=== PATIENT | male | born 1980 | race Caucasian/White ===

== ENCOUNTER 2018-04-11 15:06 | Inpatient (IN) | payer MEDICAID, MEDICARE ==
[2018-04-11 17:07] LABS: HEMATOCRIT 44.1 % (42.0-52.0); MEAN CORPUSCULAR VOLUME 91.1 fl (80.0-96.0); PLATELET COUNT, AUTOMATED 253 10^3/uL (150-450); RED BLOOD COUNT 4.84 10^6/uL (4.30-6.10); RED CELL DISTRIBUTION WIDTH 13.5 % (11.5-14.5); WHITE BLOOD COUNT 8.8 10^3/uL (4.0-10.0)
[2018-04-11 17:19] LABS: ALBUMIN 3.7 GM/DL (3.2-5.2); ALBUMIN/GLOBULIN RATIO 1.16 (1.00-1.93); ALKALINE PHOSPHATASE 68 U/L (45-117); ALT/SGPT 20 U/L (12-78); ANION GAP 9 MEQ/L (8-16); AST/SGOT 13 U/L (7-37); BILIRUBIN,DIRECT < 0.1 MG/DL (0.0-0.2); BILIRUBIN,TOTAL 0.4 MG/DL (0.2-1.0); BLOOD UREA NITROGEN 9 MG/DL (7-18); CALCIUM LEVEL 8.7 MG/DL (8.5-10.1); CARBON DIOXIDE LEVEL 26 MEQ/L (21-32); CHLORIDE LEVEL 110 MEQ/L (98-107); CREATININE FOR GFR 0.83 MG/DL (0.70-1.30); GLOMERULAR FILTRATION RATE > 60.0 (>60); GLUCOSE, FASTING 86 MG/DL (70-100); POTASSIUM SERUM 3.8 MEQ/L (3.5-5.1); SALICYLATE LEVEL 7.7 MG/DL (5.0-30.0); SODIUM LEVEL 145 MEQ/L (136-145); TOTAL PROTEIN 6.9 GM/DL (6.4-8.2)
[2018-04-11 17:25] LABS: ACETAMINOPHEN LEVEL < 2.0 UG/ML (10.0-30.0); ETHYL ALCOHOL (ETHANOL) < 0.003 % (0.000-0.010)
[2018-04-11 17:37] LABS: AMPHETAMINES LEVEL URINE POSITIVE (NEGATIVE); BARBITURATES URINE NEGATIVE (NEGATIVE); BENZODIAZEPINES URINE NEGATIVE (NEGATIVE); CANNABINOIDS URINE POSITIVE (NEGATIVE); COCAINE METABOLITE URINE NEGATIVE (NEGATIVE); METHADONE URINE NEGATIVE (NEGATIVE); OPIATES URINE NEGATIVE (NEGATIVE); PHENCYCLIDINE URINE NEGATIVE (NEGATIVE)
[2018-04-11] MEDS ORDERED: MOM 30ML SUSPENSION UDC PO ×2 (18:45)
[2018-04-11] MEDS: traZODone 50 MG TAB PO ×2 (22:00)
[2018-04-12] MEDS: NICOTINE 21MG/24HR 1 EA TRANSDERMAL TD ×2 (08:10)
[2018-04-12] MEDS: LORazepam 2 MG TAB PO ×2 (10:25)
[2018-04-12] MEDS: BENZTROPINE 2 MG TAB PO ×4 (10:25→21:39)
[2018-04-12] MEDS: ZIPRASIDONE 20MG CAPSULE (GEODON) PO ×2 (10:26)
[2018-04-12] MEDS: ZIPRASIDONE 80 MG CAP (GEODON) PO ×2 (18:50)
[2018-04-12] MEDS: traZODone 50 MG TAB PO ×2 (21:39)
[2018-04-12] MEDS: PRAZOSIN 1 MG CAP PO ×2 (21:39)
[2018-04-13] MEDS: NICOTINE 21MG/24HR 1 EA TRANSDERMAL TD ×2 (08:15)
[2018-04-13] MEDS: BENZTROPINE 2 MG TAB PO ×4 (12:01→22:12)
[2018-04-13] MEDS: LORazepam 2 MG TAB PO ×2 (12:01)
[2018-04-13] MEDS: HALOPERIDOL 5 MG TAB PO ×2 (12:06)
[2018-04-13] MEDS: ZIPRASIDONE 80 MG CAP (GEODON) PO ×2 (17:39)
[2018-04-13] MEDS: PRAZOSIN 1 MG CAP PO ×2 (22:11)
[2018-04-14] MEDS: ACETAMINOPHEN TAB 650MG DOSE (2X325MG) PO ×2 (05:08)
[2018-04-14] MEDS: NICOTINE 21MG/24HR 1 EA TRANSDERMAL TD ×2 (08:16)
[2018-04-14] MEDS: BENZTROPINE 2 MG TAB PO ×4 (08:16→21:00)
[2018-04-14] MEDS: HALOPERIDOL 5 MG TAB PO ×2 (12:17)
[2018-04-14] MEDS: LORazepam 2 MG TAB PO ×2 (15:21)
[2018-04-14] MEDS: ZIPRASIDONE 80 MG CAP (GEODON) PO ×2 (18:12)
[2018-04-14] MEDS: ZIPRASIDONE 20MG CAPSULE (GEODON) PO ×2 (18:12)
[2018-04-14] MEDS: PRAZOSIN 1 MG CAP PO ×2 (21:00)
[2018-04-15] MEDS: HALOPERIDOL 5 MG TAB PO ×4 (07:02→18:05)
[2018-04-15] MEDS: NICOTINE 21MG/24HR 1 EA TRANSDERMAL TD ×2 (07:51)
[2018-04-15] MEDS: BENZTROPINE 2 MG TAB PO ×4 (07:51→20:18)
[2018-04-15] MEDS: ZIPRASIDONE 80 MG CAP (GEODON) PO ×2 (17:53)
[2018-04-15] MEDS: ZIPRASIDONE 20MG CAPSULE (GEODON) PO ×2 (17:53)
[2018-04-15] MEDS: LORazepam 1 MG TAB PO ×2 (20:18)
[2018-04-15] MEDS: PRAZOSIN 1 MG CAP PO ×2 (20:18)
[2018-04-16] MEDS: HALOPERIDOL 5 MG TAB PO ×2 (06:10)
[2018-04-16] MEDS: BENZTROPINE 2 MG TAB PO ×4 (08:25→21:29)
[2018-04-16] MEDS: NICOTINE 21MG/24HR 1 EA TRANSDERMAL TD ×2 (08:26)
[2018-04-16] MEDS: LORazepam 1 MG TAB PO ×2 (08:26)
[2018-04-16] MEDS: ZIPRASIDONE 20MG CAPSULE (GEODON) PO ×2 (17:41)
[2018-04-16] MEDS: ZIPRASIDONE 80 MG CAP (GEODON) PO ×2 (17:41)
[2018-04-16] MEDS: PRAZOSIN 1 MG CAP PO ×2 (21:29)
[2018-04-17] MEDS: BENZTROPINE 2 MG TAB PO ×4 (08:09→08:45)
[2018-04-17] MEDS: NICOTINE 21MG/24HR 1 EA TRANSDERMAL TD ×2 (08:10)
[2018-04-17] MEDS: ZIPRASIDONE 20MG CAPSULE (GEODON) PO ×4 (08:44→17:55)
[2018-04-17] MEDS: MULTIVITAMINS/MINERALS THERAP 1 TAB PO ×2 (08:44)
[2018-04-17] MEDS: LORazepam 1 MG TAB PO ×6 (10:10→21:00)
[2018-04-17] MEDS: ZIPRASIDONE 80 MG CAP (GEODON) PO ×2 (17:55)
[2018-04-17] MEDS: HALOPERIDOL 5 MG TAB PO ×4 (18:19→21:00)
[2018-04-17] MEDS: PRAZOSIN 1 MG CAP PO ×2 (20:14)
[2018-04-17] MEDS: diphenhydrAMINE 50 MG CAP PO ×2 (21:00)
[2018-04-18] MEDS: NICOTINE 21MG/24HR 1 EA TRANSDERMAL TD ×4 (09:00→19:16)
[2018-04-18] MEDS: ZIPRASIDONE 20MG CAPSULE (GEODON) PO ×4 (09:01→17:57)
[2018-04-18] MEDS: BENZTROPINE 2 MG TAB PO ×2 (09:01)
[2018-04-18] MEDS ORDERED: PILL CRUSHER/CUTTER 1 EACH XX ×2 (10:30)
[2018-04-18] MEDS: LORazepam 1 MG TAB PO ×2 (13:19)
[2018-04-18] MEDS: HALOPERIDOL 5 MG TAB PO ×2 (13:19)
[2018-04-18] MEDS: ZIPRASIDONE 80 MG CAP (GEODON) PO ×2 (17:58)
[2018-04-18] MEDS: PRAZOSIN 1 MG CAP PO ×2 (21:00)
[2018-04-19] MEDS: BENZTROPINE 2 MG TAB PO ×2 (10:21)
[2018-04-19] MEDS: NICOTINE 21MG/24HR 1 EA TRANSDERMAL TD ×2 (10:21)
[2018-04-19] MEDS: ZIPRASIDONE 20MG CAPSULE (GEODON) PO ×4 (10:22→19:52)
[2018-04-19] MEDS: HALOPERIDOL DECANOATE 100 MG/ML VIAL (J1631) IM ×2 (10:24)
[2018-04-19] MEDS: LORazepam 1 MG TAB PO ×2 (15:33)
[2018-04-19] MEDS: HALOPERIDOL 5 MG TAB PO ×2 (17:19)
[2018-04-19] MEDS: ZIPRASIDONE 80 MG CAP (GEODON) PO ×2 (19:50)
[2018-04-19] MEDS: PRAZOSIN 1 MG CAP PO ×2 (19:56)
[2018-04-20] MEDS: BENZTROPINE 2 MG TAB PO ×2 (07:43)
[2018-04-20] MEDS: ZIPRASIDONE 20MG CAPSULE (GEODON) PO ×4 (07:43→18:10)
[2018-04-20] MEDS: NICOTINE 21MG/24HR 1 EA TRANSDERMAL TD ×2 (07:44)
[2018-04-20] MEDS: LORazepam 1 MG TAB PO ×2 (11:01)
[2018-04-20] MEDS: HALOPERIDOL 5 MG TAB PO ×2 (11:01)
[2018-04-20] MEDS: QUEtiapine FUMARATE 100 MG TAB PO ×2 (14:36)
[2018-04-20] MEDS: diphenhydrAMINE 50 MG CAP PO ×4 (15:30→21:00)
[2018-04-20] MEDS: ZIPRASIDONE 80 MG CAP (GEODON) PO ×2 (18:10)
[2018-04-21] MEDS: BENZTROPINE 2 MG TAB PO ×2 (08:19)
[2018-04-21] MEDS: ZIPRASIDONE 20MG CAPSULE (GEODON) PO ×4 (08:19→17:31)
[2018-04-21] MEDS: HALOPERIDOL 5 MG TAB PO ×2 (08:19)
[2018-04-21] MEDS: diphenhydrAMINE 50 MG CAP PO ×6 (08:19→21:00)
[2018-04-21] MEDS: LORazepam 1 MG TAB PO ×2 (08:19)
[2018-04-21] MEDS: NICOTINE 21MG/24HR 1 EA TRANSDERMAL TD ×4 (08:39→09:00)
[2018-04-21] MEDS: QUEtiapine FUMARATE 100 MG TAB PO ×10 (08:40→21:00)
[2018-04-21] MEDS: ZIPRASIDONE 80 MG CAP (GEODON) PO ×2 (17:31)
[2018-04-22] MEDS: ZIPRASIDONE 20MG CAPSULE (GEODON) PO ×4 (08:19→17:26)
[2018-04-22] MEDS: QUEtiapine FUMARATE 100 MG TAB PO ×8 (08:19→21:10)
[2018-04-22] MEDS: BENZTROPINE 2 MG TAB PO ×2 (08:19)
[2018-04-22] MEDS: diphenhydrAMINE 50 MG CAP PO ×6 (08:20→21:11)
[2018-04-22] MEDS: NICOTINE 21MG/24HR 1 EA TRANSDERMAL TD ×2 (08:21)
[2018-04-22] MEDS: PALIPERIDONE PALMITATE 156 MG/1ML INJ(INVEGA SUSTENNA)(J2426) IM ×2 (16:53)
[2018-04-22] MEDS: ZIPRASIDONE 80 MG CAP (GEODON) PO ×2 (17:26)
[2018-04-23] MEDS: BENZTROPINE 1 MG TAB PO ×2 (08:32)
[2018-04-23] MEDS: QUEtiapine FUMARATE 100 MG TAB PO ×4 (08:32→21:02)
[2018-04-23] MEDS: diphenhydrAMINE 50 MG CAP PO ×6 (08:32→21:02)
[2018-04-23] MEDS: ZIPRASIDONE 20MG CAPSULE (GEODON) PO ×4 (08:32→17:33)
[2018-04-23] MEDS: NICOTINE 21MG/24HR 1 EA TRANSDERMAL TD ×2 (08:32)
[2018-04-23] MEDS: LORazepam 1 MG TAB PO ×2 (09:10)
[2018-04-23] MEDS: ZIPRASIDONE 80 MG CAP (GEODON) PO ×2 (17:33)
[2018-04-24] MEDS: NICOTINE 21MG/24HR 1 EA TRANSDERMAL TD ×4 (07:56→11:28)
[2018-04-24] MEDS: ZIPRASIDONE 20MG CAPSULE (GEODON) PO ×2 (08:12)
[2018-04-24] MEDS: QUEtiapine FUMARATE 100 MG TAB PO ×4 (08:12→20:25)
[2018-04-24] MEDS: diphenhydrAMINE 50 MG CAP PO ×6 (08:12→20:25)
[2018-04-24] MEDS: BENZTROPINE 1 MG TAB PO ×2 (08:12)
[2018-04-24] MEDS: HALOPERIDOL 5 MG TAB PO ×2 (09:51)
[2018-04-24] MEDS: ZIPRASIDONE 80 MG CAP (GEODON) PO ×2 (17:45)
[2018-04-25] MEDS: QUEtiapine FUMARATE 100 MG TAB PO ×4 (08:00→21:00)
[2018-04-25] MEDS: diphenhydrAMINE 50 MG CAP PO ×2 (08:00)
[2018-04-25] MEDS: BENZTROPINE 1 MG TAB PO ×2 (08:00)
[2018-04-25] MEDS: NICOTINE 14 MG/24 HR TRANSDERMAL TD ×2 (08:22)
[2018-04-25] MEDS: diphenhydrAMINE 25 MG CAP PO ×4 (15:30→21:00)
[2018-04-25] MEDS: LORazepam 1 MG TAB PO ×2 (15:44)
[2018-04-25] MEDS: HALOPERIDOL 5 MG TAB PO ×2 (15:44)
[2018-04-25] MEDS: ZIPRASIDONE 20MG CAPSULE (GEODON) PO ×2 (17:50)
[2018-04-26] MEDS: MAALOX 30 ML SUSP *UDC PO ×2 (05:57)
[2018-04-26] MEDS: diphenhydrAMINE 25 MG CAP PO ×6 (08:02→20:05)
[2018-04-26] MEDS: QUEtiapine FUMARATE 100 MG TAB PO ×4 (08:02→20:04)
[2018-04-26] MEDS: BENZTROPINE 1 MG TAB PO ×2 (08:02)
[2018-04-26] MEDS: NICOTINE 14 MG/24 HR TRANSDERMAL TD ×2 (08:03)
[2018-04-26] MEDS: LORazepam 1 MG TAB PO ×2 (10:00)
[2018-04-26] MEDS: PALIPERIDONE PALMITATE 156 MG/1ML INJ(INVEGA SUSTENNA)(J2426) IM ×2 (12:06)
[2018-04-26] MEDS: traZODone 50 MG TAB PO ×2 (20:40)
[2018-04-27] MEDS: diphenhydrAMINE 25 MG CAP PO ×2 (08:13)
[2018-04-27] MEDS: QUEtiapine FUMARATE 100 MG TAB PO ×2 (08:13)
[2018-04-27] MEDS: BENZTROPINE 1 MG TAB PO ×2 (08:13)
[2018-04-27] MEDS: NICOTINE 14 MG/24 HR TRANSDERMAL TD ×2 (08:14)
[2018-05-26] MEDS ORDERED: PALIPERIDONE PALMITATE 156 MG/1ML INJ(INVEGA SUSTENNA)(J2426) IM ×2 (09:00)
== END 2018-04-27 11:00 | disposition home or self-care (01) | DRG 750 ==
LOC: M PSY 04-22 12:25 → M ED 15:06 → M PSY 20:45
DX: F20.5 Residual schizophrenia (principal); Z91.14 Patient's other noncompliance with medication regimen; E78.5 Hyperlipidemia, unspecified; F90.9 Attention-deficit hyperactivity disorder, unspecified type; F12.10 Cannabis abuse, uncomplicated; F17.210 Nicotine dependence, cigarettes, uncomplicated; Z81.8 Family history of other mental and behavioral disorders; Z79.899 Other long term (current) drug therapy; Z88.8 Allergy status to other drugs, medicaments and biological substances

== ENCOUNTER 2020-05-13 22:22 | Inpatient (IN) | payer MEDICARE, MEDICAID ==
[~2020-05-13] VITALS: Ht 180.3 cm; Wt 95.9 kg
[~2020-05-13 22:22] MED LIST: ADDE20CA3 PO; ATIV0.5T; BENZ-52 PO; COGE1INJ; DEPA500T; GEOD60CA; INVE156I IM; LAMI1TAB7; LAMI1TAB7 OR; LORA0.5T OR; PRAZ1CAP PO; QUET400T PO; RISPERDAL CONSTA IM; SERO200T; TREANDA100 MG; TRIC145T19; TRIC145T19 OR; ZIPR20CA13 PO; ZIPR80CAP
[2020-05-13] MEDS ORDERED: GUAN1TA (22:34)
[2020-05-13 23:26] LABS: HEMATOCRIT 45.5 % (42.0-52.0); HEMOGLOBIN 15.4 g/dl (13.5-17.5); MEAN CORPUSCULAR HGB CONC 33.8 g/dl (32.0-36.5); MEAN CORPUSCULAR VOLUME 91.5 fl (80.0-96.0); PLATELET COUNT, AUTOMATED 254 10^3/uL (150-450); RED BLOOD COUNT 4.97 10^6/uL (4.30-6.10); WHITE BLOOD COUNT 9.8 10^3/uL (4.0-10.0)
[2020-05-13 23:36] LABS: AMPHETAMINES LEVEL URINE NEGATIVE (NEGATIVE); BARBITURATES URINE NEGATIVE (NEGATIVE); BENZODIAZEPINES URINE NEGATIVE (NEGATIVE); CANNABINOIDS URINE NEGATIVE (NEGATIVE); COCAINE METABOLITE URINE NEGATIVE (NEGATIVE); METHADONE URINE NEGATIVE (NEGATIVE); OPIATES URINE NEGATIVE (NEGATIVE); PHENCYCLIDINE URINE NEGATIVE (NEGATIVE)
[2020-05-13 23:52] LABS: ALBUMIN 3.8 GM/DL (3.2-5.2); ALT/SGPT 31 U/L (12-78); BILIRUBIN,DIRECT < 0.1 MG/DL (0.0-0.2); BILIRUBIN,TOTAL 0.5 MG/DL (0.2-1.0); BLOOD UREA NITROGEN 10 MG/DL (7-18); CALCIUM LEVEL 9.1 MG/DL (8.5-10.1); CARBON DIOXIDE LEVEL 26 MEQ/L (21-32); CHLORIDE LEVEL 111 MEQ/L (98-107); CREATININE FOR GFR 0.96 MG/DL (0.70-1.30); ETHYL ALCOHOL (ETHANOL) 0.003 % (0.000-0.010); GLOMERULAR FILTRATION RATE > 60.0 (>60); GLUCOSE, FASTING 95 MG/DL (70-100); POTASSIUM SERUM 3.9 MEQ/L (3.5-5.1); SALICYLATE LEVEL 6.3 MG/DL (5.0-30.0); SODIUM LEVEL 143 MEQ/L (136-145)
[2020-05-13 23:53] LABS: ACETAMINOPHEN LEVEL < 2.0 UG/ML (10.0-30.0)
[2020-05-14] MEDS ORDERED: ADDE30CA3 PO (00:31)
[2020-05-14] MEDS ORDERED: INVE156I IM (00:31)
[2020-05-14] MEDS ORDERED: GUAN1TA PO (00:31)
[2020-05-14] MEDS ORDERED: CAFF200T PO (00:35)
[2020-05-14] MEDS ORDERED: VITATAB73 PO (00:35)
[2020-05-14] MEDS ORDERED: VITMTA PO (00:35)
[2020-05-14] MEDS ORDERED: UNIS25TA3 PO (00:35)
[2020-05-14] MEDS ORDERED: NICOTINE 21MG/24HR 1 EA TRANSDERMAL TD ONE (14:15)
[2020-05-14] MEDS ORDERED: MAALOX 30 ML SUSP *UDC PO PRN (20:00)
[2020-05-14] MEDS ORDERED: MOM 30ML SUSPENSION UDC PO PRN (20:00)
[2020-05-14] MEDS ORDERED: ACETAMINOPHEN TAB 650MG DOSE (2X325MG) PO PRN (20:00)
--- NOTE | 2020-05-14 20:52 | ECGEPIP ---
[facility] - ED Test Date: 2020-05-13 Pat Name: MESFIN REEDER Department: Room: - Gender: Male Assistant Elementary Teacher: ARBEN : 1980 Requested By: SANJANA HARRY Order Number: [id number] Reading MD: Donna Spencer Measurements Intervals [place] Rate: 71 P: -7 MN: 151 QRS: 95 QRSD: 101 T: 30 QT: 385 QTc: 419 Interpretive Statements SINUS RHYTHM BORDERLINE RIGHT AXIS DEVIATION INCREASED RATE 04/16/18 Electronically Signed on 05-14-2020 20:52:41 EDT by Donna Spencer
[2020-05-14 21:40] VITALS: BP 151/92
[2020-05-14] MEDS: BENZTROPINE 1 MG TAB PO SCH (22:27)
[2020-05-15 06:36] VITALS: BP 122/80
[2020-05-15] MEDS: NICOTINE 21MG/24HR 1 EA TRANSDERMAL TD SCH (08:26)
[2020-05-15] MEDS: BREXPIPRAZOLE 0.5MG TABLET (REXULTI) PO SCH (08:26)
[2020-05-15] MEDS ORDERED: INFLUENZA QUADRIVALENT PF VACCINE 0.5ML SYRINGE IM ONE (09:00)
--- NOTE | 2020-05-15 10:21 | MHHPEPDOC ---
[facility] History & Physical History and Physical DATE OF ADMISSION: May 14, 2020 at 19:52 Subjective HPI: The patient a 40-year-old man with a history of schizophrenia presents after reporting suicidal thoughts, he reports that he had become depressed as he had smelled "lamp oil" in his home and became depressed and suicidal. The patient is quite tangential and distorted during the visit and history is hard to be obtained from them. Information is extracted from the chart and previous admissions. MEDICAL/PSYCHIATRIC HISTORY: History multiple admissions last in March 2018, diagnosis of schizophrenia, currently on a combination of paliperidone injections, which appear to be getting close to being redone. Sees November dials in private practice FAMILY HISTORY: Unable to obtain for patient SOCIAL HISTORY - OCCUPATION: Doesn't appear to be employed at this time SOCIAL HISTORY - LIVING SITUATION: . Reports lives with roommate SOCIAL HISTORY- ADDICTION: Denies any recent drug use Objective General: poor Speech: rapid Thought processes: tangential Thought content: psychotic delusions Abstract reasoning, and computation: impaired Description of associations: imparied Description of abnormal or psychotic thoughts:Unclear, appears to have psychotic processes going on. Judgment: poor Insight: poor Orientation: Alert and orientated 3 Recent and remote memory: Intact Attention span and concentration: impaired secondary to thought process Fund of knowledge: unable to determine Mood: "fine" Affect: flat, little reactivity Assessment Schizophrenia Plan Will resume home medications of Brexipiazole 1 mg and will consider giving earlier dose paliperidone injection, however, could restart oral medications but observation is critical, gustatory hallucinations are concerning for organic cause and CT scan will need to be done, ordered without contrast Recommend that on-call provider follow up with CT scan if negative Moses starting in Son[place] 3 mg QHS to determine if this improves. Restart patient's home Adderall confirmed that he was currently on this dose, as well as his Tenex. Treatment priorities are 1. Altered thoughts 2.. Risk for suicide Stay for one-5 days. Vital Signs Vital Signs Date Time Temp Pulse Resp B/P (MAP) Pulse Ox O2 Delivery O2 Flow Rate FiO2 05/15/20 06:36 97.5 73 12 122/80 (94) Room Air 05/14/20 14:45 98 Medications Scheduled Benztropine Mesylate (Benztropine Mesylate) 1 Mg Tab, 1 MG PO QHS, (Reported) Caffeine (Caffeine) 200 Mg Tablet, 200 MG PO DAILY, (Reported) Dextroamphetamine/Amphetamine (Adderall Xr 30 mg Capsule) 30 Mg Cap.er.24h, 1 CAP PO DAILY, (Reported) Guanfacine HCl (Guanfacine HCl) 1 Mg Tablet, 1 MG PO DAILY, (Reported) TAKES @ 1200 Multivitamins (Thera M Plus Tablet) 1 Each Tablet, 1 TAB PO DAILY, (Reported) Paliperidone Palmitate (Invega Sustenna) 156 Mg/1 Ml Syringe, 156 MG IM QMONTH, (Reported) Vitamin B Complex (Vitamin B Complex) 1 Each Tablet, 1 TAB PO DAILY, (Reported) Scheduled PRN Doxylamine Succinate (Unisom Sleep Aid) 25 Mg Tablet, 25 MG PO QHS PRN for INSOMNIA, (Reported) Allergies Coded Allergies: nefazodone (Verified Allergy, Unknown, rash, 05/13/20) TIM JARA DO May 15, 2020 10:21
[2020-05-15] MEDS: guanFACINE 1 MG TAB PO SCH (10:48)
--- NOTE | 2020-05-15 13:22 | REPVR ---
PROCEDURE INFORMATION: Exam: CT Head Without Contrast Exam date and time: 05/15/2020 1:09 PM Age: 40 years old Clinical indication: Other: Gustory halluincations TECHNIQUE: Imaging protocol: Computed tomography of the head without contrast. Radiation optimization: All CT scans at this facility use at least one of these dose optimization techniques: automated exposure control; mA and/or kV adjustment per patient size (includes targeted exams where dose is matched to clinical indication); or iterative reconstruction. COMPARISON: No relevant prior studies available. FINDINGS: Brain: No hemorrhage. Unremarkable white matter for the patient's age. No mass effect. No evolving territorial infarct. Cerebral ventricles: No ventriculomegaly. Mild size asymmetry of the lateral ventricles. Bones/joints: Unremarkable. No acute fracture. Paranasal sinuses: Visualized sinuses are unremarkable. No fluid levels. Mastoid air cells: Small, dependent right mastoid effusion. Soft tissues: Unremarkable. IMPRESSION: No acute intracranial abnormality seen. Electronically signed by: Jessica Unger On 05/15/2020 13:22:32 PM
[2020-05-15] MEDS ORDERED: AMPHETAMINE/DEXTROAMPHETAMINE 5 MG *ER* CAPSULE (ADDERALL XR) PO ONE (13:45)
--- NOTE | 2020-05-15 16:27 | HPEPDOC ---
[facility] Medical History & Physical Date of Admission May 15, 2020 Date of Service: May 15, 2020 History and Physical Chief complaint: Who presented to the hospital with suicidal ideation and was admitted to the inpatient mental health unit Hospitalist service was consulted for medical screening evaluation History of present illness: Patient is a 40-year-old male with PMHx of DLP who is presented to the hospital with complaints of suicidal ideation. A she has been admitted to the inpatient mental health unit under the care of psychiatry hospitalist service was consulted for medical screening evaluation. Currently patient denies any headache, nausea, vomiting, chest pain, shortness breath, palpitations, abdominal pain, diarrhea, constipation, or burning/disco mfort with urination. He denies any recent fevers or chills. Reports that his appetite is fairly normal and has not experienced any changes in his weight. Past Medical History: DLP Past Surgical History: Patient denies any prior surgical history Allergies: See below Medications: See below Family History: - Father with a history of high blood pressure and diabetes. 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 Review of Systems: 10 point review of systems complete, all negative otherwise stated in HPI Physical exam: - Vitals: BP [122/80], HR [73], RR [12], Sat [98%RA], Temp [97.5F] - General: Sitting up in chair, No acute distress, Speaking in full sentences, AAOx3 - HEENT: NC, AT, PERRLA - CVS: RRR, +S1S2 - Lungs: Fair air entry bilaterally, No appreciable wheezing / rales / rhonchi - Abdomen: Soft, Non-distended, Non-tender - Extremities: No lower extremity edema, No calf tenderness - Neuro: No focal motor or sensory deficit - Skin: No visible rashes Assessment and Plan: Suicidal ideation - Patient has been admitted to the inpatient mental health unit under the care of psychiatry - Currently being managed by psychiatry Remote history of dyslipidemia - Patient reports that he has been taken off of statins DVT prophylaxis - Will continue with early ambulation Female circus roustabout was present throughout the duration of his history and physical examination Thank you for this consultation; hospitalist service will sign off, please reconsult as needed Vital Signs Vital Signs Date Time Temp Pulse Resp B/P (MAP) Pulse Ox O2 Delivery O2 Flow Rate FiO2 05/15/20 10:48 122/80 05/15/20 06:36 97.5 73 12 Room Air 05/14/20 14:45 98 Home Medications Scheduled Benztropine Mesylate (Benztropine Mesylate) 1 Mg Tab, 1 MG PO QHS Caffeine (Caffeine) 200 Mg Tablet, 200 MG PO DAILY Dextroamphetamine/Amphetamine (Adderall Xr 30 mg Capsule) 30 Mg Cap.er.24h, 1 CAP PO DAILY Guanfacine HCl (Guanfacine HCl) 1 Mg Tablet, 1 MG PO DAILY TAKES @ 1200 Multivitamins (Thera M Plus Tablet) 1 Each Tablet, 1 TAB PO DAILY Paliperidone Palmitate (Invega Sustenna) 156 Mg/1 Ml Syringe, 156 MG IM QMONTH Vitamin B Complex (Vitamin B Complex) 1 Each Tablet, 1 TAB PO DAILY Scheduled PRN Doxylamine Succinate (Unisom Sleep Aid) 25 Mg Tablet, 25 MG PO QHS PRN for INSOMNIA Allergies Coded Allergies: nefazodone (Verified Allergy, Unknown, rash, 05/13/20) A-FIB/CHADSVASC A-FIB History Current/History of A-Fib/PAF?: No JOZEF SHAFFER MD May 15, 2020 16:27
[2020-05-15 18:41] VITALS: BP 151/74
[2020-05-15] MEDS: BENZTROPINE 1 MG TAB PO SCH (20:10)
[2020-05-15] MEDS: OLANZapine ORAL DISINTEGRATING TAB 5MG PO PRN (23:50)
[2020-05-16 06:37] VITALS: BP 105/66
[2020-05-16] MEDS: AMPHETAMINE/DEXTROAMPHETAMINE 5 MG *ER* CAPSULE (ADDERALL XR) PO SCH (08:11)
[2020-05-16] MEDS: guanFACINE 1 MG TAB PO SCH (08:11)
[2020-05-16] MEDS: BREXPIPRAZOLE 0.5MG TABLET (REXULTI) PO SCH (08:11)
[2020-05-16] MEDS: NICOTINE 21MG/24HR 1 EA TRANSDERMAL TD SCH (08:11)
[2020-05-16 18:00] VITALS: BP 132/67
[2020-05-16] MEDS: BENZTROPINE 1 MG TAB PO SCH (20:24)
[2020-05-16] MEDS: OLANZapine ORAL DISINTEGRATING TAB 5MG PO PRN (23:36)
[2020-05-17 06:58] VITALS: BP 96/58
[2020-05-17] MEDS: AMPHETAMINE/DEXTROAMPHETAMINE 5 MG *ER* CAPSULE (ADDERALL XR) PO SCH (08:13)
[2020-05-17] MEDS: BREXPIPRAZOLE 0.5MG TABLET (REXULTI) PO SCH (08:13)
[2020-05-17] MEDS: guanFACINE 1 MG TAB PO SCH (08:15)
[2020-05-17] MEDS: NICOTINE 21MG/24HR 1 EA TRANSDERMAL TD SCH (09:16)
[2020-05-17 17:48] VITALS: BP 132/77
[2020-05-17] MEDS: BENZTROPINE 1 MG TAB PO SCH (20:07)
[2020-05-18 06:42] VITALS: BP 102/67
[2020-05-18] MEDS: NICOTINE 21MG/24HR 1 EA TRANSDERMAL TD SCH (08:09)
[2020-05-18] MEDS: AMPHETAMINE/DEXTROAMPHETAMINE 5 MG *ER* CAPSULE (ADDERALL XR) PO SCH (08:09)
[2020-05-18] MEDS: BREXPIPRAZOLE 0.5MG TABLET (REXULTI) PO SCH (08:10)
[2020-05-18] MEDS: guanFACINE 1 MG TAB PO SCH (09:51)
--- NOTE | 2020-05-18 09:54 | MHIPNPDOC ---
[facility] Progress Note Progress Note DATE OF SERVICE: 05/18/20 Subjective HPI: Pako presents today for concerns regarding his schizoaffective disorder and swollen finger. He smashed his finger a month ago, and it has been swollen. MEDICATIONS: Patient was curious about Percocet, but was advised to take Advil or Ibuprofen instead. Objective Appearance: Poor hygiene. Behavior: Does not appear to be responding to an internal stimuli but appears to be quite distractible. . Affect: Flat. Cognition: Impaired secondary to thought process. Thought Form: Nonlinear. Tangential. Thought Content: Fairly psychotic. Judgement: Poor. Insight: Poor. Assessment F25.9 Schizoaffective disorder, unspecified Plan Start Invega PO to help patient become more stable. It is unlikely that his insurance would approve an earlier injection however it would be more likely to approve a supply of medication that would be given orally and intermediately. We will continue to work on placement. We will do X finger scan due to finger trauma reportedly. Next Invega injection on May 21. Vital Signs Vital Signs Date Time Temp Pulse Resp B/P (MAP) Pulse Ox O2 Delivery O2 Flow Rate FiO2 05/18/20 09:51 125/82 05/18/20 06:42 97.0 56 16 98 Room Air Current Medications Current Medications Medications (Trade) Dose Ordered Sig/Mauro Route PRN Reason Start Time Stop Time Status Last Admin Dose Admin Acetaminophen (Tylenol Tab) 650 mg Q6HP PRN PO HEADACHE or DISCOMFORT 05/14/20 20:00 Al Hydrox/Mg Hydrox/Simethicone (Mylanta) 30 ml Q4HP PRN PO HEARTBURN/INDIGESTION 05/14/20 20:00 Amphetamine/ Dextroamphetamine (Adderall Xr) 30 mg QAM PO 05/16/20 09:00 05/18/20 08:09 Benztropine Mesylate (Cogentin) 1 mg QHS PO 05/14/20 21:00 05/17/20 20:07 Brexpiprazole (Rexulti) 1 mg DAILY PO 05/15/20 09:00 05/18/20 08:10 Guanfacine HCl (Tenex) 1 mg DAILY PO 05/15/20 09:00 05/18/20 09:51 Home Med (Med Rec Complete!) ASDIRECTED XX 05/14/20 00:45 05/14/20 00:33 DC Magnesium Hydroxide (Milk Of Magnesia) 30 ml DAILYPRN PRN PO CONSTIPATION 05/14/20 20:00 Nicotine (Nicoderm Cq 21mg) 1 patch DAILY TD 05/15/20 09:00 05/18/20 08:09 Olanzapine (ZyPREXA ZYDIS) 5 mg Q6HP PRN PO ANXIETY/AGITATION 05/14/20 20:00 05/16/20 23:36 Quetiapine Fumarate (SEROquel) 50 mg QHSP PRN PO INSOMNIA 05/14/20 20:00 Allergies Coded Allergies: nefazodone (Verified Allergy, Unknown, rash, 05/13/20) TIM JARA DO May 18, 2020 09:54
[2020-05-18] MEDS: IBUPROFEN 400 MG TAB PO PRN (14:22)
[2020-05-18 16:05] VITALS: BP 123/77
--- NOTE | 2020-05-18 16:18 | REPVR ---
PROCEDURE INFORMATION: Exam: XR Left Finger(s) Exam date and time: 05/18/2020 12:01 PM Age: 40 years old Clinical indication: Injury or trauma; Injury history: Crush injury; Initial encounter; Crushing; Left; Ring finger; Additional info: Left ring finger damage TECHNIQUE: Imaging protocol: XR Left fingers. Views: Minimum 2 views. COMPARISON: No relevant prior studies available. FINDINGS: Bones/joints: Acute comminuted mildly displaced fracture of the 4th distal phalanx tuft. No dislocation. Soft tissues: Distal 4th finger soft tissue swelling. IMPRESSION: Acute fracture of the 4th distal phalanx tuft. Electronically signed by: Chandler Thibodeaux On 05/18/2020 16:17:54 PM
[2020-05-18] MEDS: BENZTROPINE 1 MG TAB PO SCH (20:07)
[2020-05-18] MEDS: PALIPERIDONE 3 MG ER TAB (INVEGA) PO SCH (20:08)
[2020-05-19 06:37] VITALS: BP 106/65
[2020-05-19] MEDS: BREXPIPRAZOLE 0.5MG TABLET (REXULTI) PO SCH (08:04)
[2020-05-19] MEDS: AMPHETAMINE/DEXTROAMPHETAMINE 5 MG *ER* CAPSULE (ADDERALL XR) PO SCH (08:04)
[2020-05-19] MEDS: NICOTINE 21MG/24HR 1 EA TRANSDERMAL TD SCH (08:05)
[2020-05-19] MEDS: IBUPROFEN 400 MG TAB PO PRN ×2 (08:05→14:54)
[2020-05-19] MEDS: guanFACINE 1 MG TAB PO SCH (08:06)
--- NOTE | 2020-05-19 10:19 | MHIPNPDOC ---
[facility] Progress Note Progress Note DATE OF SERVICE: 05/19/20 Subjective HPI: Pako presents today for follow-up. Patients fingers are fractured. Patient states he believes his landlord is a witch. He notes he was inhaling WD-40 for a couple of days. MEDICATIONS: Patient is currently needing his next dosage of Invega 187 mg. He notes his dose of Invega was lowered due to him feeling heavily sedated. SOCIAL HISTORY - LIVING SITUATION: He notes his air quality is not well at home. Objective Appearance: poor. Behavior: Paranoid. Does not respond to unseen others. Looks around the room b izarrely. Cognition: Appeared secondary to thought process. Appers to generally have impaired associations. Thought Form: Nonlinear. Tangential. Judgement: Poor. Insight: poor. Assessment S62.600A Fracture of unspecified phalanx of right index finger, initial encounter for closed fracture F25.9 Schizoaffective disorder, unspecified Plan Will give Invega injections 154 mg and Invega 3 mg oral Orthopedist to examine finger Will further ascertain, it appears however he sees an outpatient provider who is telehealth, which could be a significant problem for patient because he needs more intensive care Vital Signs Vital Signs Date Time Temp Pulse Resp B/P (MAP) Pulse Ox O2 Delivery O2 Flow Rate FiO2 05/19/20 08:06 102/72 05/19/20 06:37 96.8 64 16 Room Air 05/18/20 06:42 98 Current Medications Current Medications Medications (Trade) Dose Ordered Sig/Mauro Route PRN Reason Start Time Stop Time Status Last Admin Dose Admin Acetaminophen (Tylenol Tab) 650 mg Q6HP PRN PO HEADACHE or DISCOMFORT 05/14/20 20:00 Al Hydrox/Mg Hydrox/Simethicone (Mylanta) 30 ml Q4HP PRN PO HEARTBURN/INDIGESTION 05/14/20 20:00 Amphetamine/ Dextroamphetamine (Adderall Xr) 30 mg QAM PO 05/16/20 09:00 05/19/20 08:04 Benztropine Mesylate (Cogentin) 1 mg QHS PO 05/14/20 21:00 05/18/20 20:07 Brexpiprazole (Rexulti) 1 mg DAILY PO 05/15/20 09:00 05/19/20 08:04 Guanfacine HCl (Tenex) 1 mg DAILY PO 05/15/20 09:00 05/19/20 08:06 Home Med (Med Rec Complete!) ASDIRECTED XX 05/14/20 00:45 05/14/20 00:33 DC Ibuprofen (Advil) 400 mg Q6HP PRN PO PAIN 05/18/20 12:30 05/19/20 08:05 Magnesium Hydroxide (Milk Of Magnesia) 30 ml DAILYPRN PRN PO CONSTIPATION 05/14/20 20:00 Nicotine (Nicoderm Cq 21mg) 1 patch DAILY TD 05/15/20 09:00 05/19/20 08:05 Olanzapine (ZyPREXA ZYDIS) 5 mg Q6HP PRN PO ANXIETY/AGITATION 05/14/20 20:00 05/16/20 23:36 Paliperidone (Invega) 3 mg QHS PO 05/18/20 21:00 05/18/20 20:08 Quetiapine Fumarate (SEROquel) 50 mg QHSP PRN PO INSOMNIA 05/14/20 20:00 Allergies Coded Allergies: nefazodone (Verified Allergy, Unknown, rash, 05/13/20) TIM JARA DO May 19, 2020 10:19
[2020-05-19] MEDS ORDERED: PALIPERIDONE PALMITATE 156MG/1ML INJ(INVEGA)(FREE PSY INPT ONLY) IM ONE (11:15)
[2020-05-19 16:15] VITALS: BP 141/70
[2020-05-19] MEDS: BENZTROPINE 1 MG TAB PO SCH (20:05)
[2020-05-19] MEDS: PALIPERIDONE 3 MG ER TAB (INVEGA) PO SCH (20:05)
[2020-05-20 06:33] VITALS: BP 125/65
[2020-05-20] MEDS: AMPHETAMINE/DEXTROAMPHETAMINE 5 MG *ER* CAPSULE (ADDERALL XR) PO SCH (08:02)
[2020-05-20] MEDS: NICOTINE 21MG/24HR 1 EA TRANSDERMAL TD SCH (08:03)
[2020-05-20] MEDS: BREXPIPRAZOLE 0.5MG TABLET (REXULTI) PO SCH (08:03)
[2020-05-20] MEDS: guanFACINE 1 MG TAB PO SCH (08:03)
--- NOTE | 2020-05-20 09:09 | MHIPNPDOC ---
[facility] Progress Note Progress Note DATE OF SERVICE: 05/20/20 Subjective HPI: Madison presents today for a follow up. He is still somewhat distorted, unable to relay much information. He reports that he feels better with his finger splinter, no current pain, or increasing redness. He is still quite psychotic and tangential during the interview. Objective Appearance: Poor Hygiene. Speech: Spontaneous and Fluid. Normal rate. Normal volume. Cognition: Impaired secondary to though process. Thought Form: Non-linear. Psychotic. Process present. Tangential. Judgement: Intact as evidenced by decision making in the recent past. Insight: Good insight into symptoms and treatment options. Assessment F20.9 Schizophrenia, unspecified Plan He will need further treatment as hes still quite distorted and far from baseline as reported from sister. Monitor him for improvement, however may need more complex management. Continue oral Invega 3 mg and now, he has gotten the injection. Refer antibiotics at this time, unless further signs or symptoms of infection occur. Vital Signs Vital Signs Date Time Temp Pulse Resp B/P (MAP) Pulse Ox O2 Delivery O2 Flow Rate FiO2 05/20/20 08:03 125/66 05/20/20 06:33 97.3 64 16 05/19/20 06:37 Room Air 05/18/20 06:42 98 Current Medications Current Medications Medications (Trade) Dose Ordered Sig/Mauro Route PRN Reason Start Time Stop Time Status Last Admin Dose Admin Acetaminophen (Tylenol Tab) 650 mg Q6HP PRN PO HEADACHE or DISCOMFORT 05/14/20 20:00 Al Hydrox/Mg Hydrox/Simethicone (Mylanta) 30 ml Q4HP PRN PO HEARTBURN/INDIGESTION 05/14/20 20:00 Amphetamine/ Dextroamphetamine (Adderall Xr) 30 mg QAM PO 05/16/20 09:00 05/20/20 08:02 Benztropine Mesylate (Cogentin) 1 mg QHS PO 05/14/20 21:00 05/19/20 20:05 Brexpiprazole (Rexulti) 1 mg DAILY PO 05/15/20 09:00 05/20/20 08:03 Guanfacine HCl (Tenex) 1 mg DAILY PO 05/15/20 09:00 05/20/20 08:03 Home Med (Med Rec Complete!) ASDIRECTED XX 05/14/20 00:45 05/14/20 00:33 DC Ibuprofen (Advil) 400 mg Q6HP PRN PO PAIN 05/18/20 12:30 05/19/20 14:54 Magnesium Hydroxide (Milk Of Magnesia) 30 ml DAILYPRN PRN PO CONSTIPATION 05/14/20 20:00 Nicotine (Nicoderm Cq 21mg) 1 patch DAILY TD 05/15/20 09:00 05/20/20 08:03 Olanzapine (ZyPREXA ZYDIS) 5 mg Q6HP PRN PO ANXIETY/AGITATION 05/14/20 20:00 05/16/20 23:36 Paliperidone (Invega) 3 mg QHS PO 05/18/20 21:00 05/19/20 20:05 Quetiapine Fumarate (SEROquel) 50 mg QHSP PRN PO INSOMNIA 05/14/20 20:00 Allergies Coded Allergies: nefazodone (Verified Allergy, Unknown, rash, 05/13/20) TIM JARA DO May 20, 2020 09:09
[2020-05-20] MEDS: IBUPROFEN 400 MG TAB PO PRN (11:35)
[2020-05-20 16:05] VITALS: BP 115/81
[2020-05-20] MEDS: PALIPERIDONE 3 MG ER TAB (INVEGA) PO SCH (20:28)
[2020-05-20] MEDS: BENZTROPINE 1 MG TAB PO SCH (20:28)
[2020-05-21 06:26] VITALS: BP 94/57
[2020-05-21] MEDS: AMPHETAMINE/DEXTROAMPHETAMINE 5 MG *ER* CAPSULE (ADDERALL XR) PO SCH (08:42)
[2020-05-21] MEDS: NICOTINE 21MG/24HR 1 EA TRANSDERMAL TD SCH (08:42)
[2020-05-21] MEDS: guanFACINE 1 MG TAB PO SCH (08:42)
[2020-05-21] MEDS: BREXPIPRAZOLE 0.5MG TABLET (REXULTI) PO SCH (08:42)
--- NOTE | 2020-05-21 10:03 | MHIPN ---
DATE: 05/16/2020 The patient today tells me, "My eyes are very irritated." He goes on about fumes in his home and how somebody is trying to kill him. It is very difficult to follow his thinking and to even ask him questions, because he basically just goes on about the same thing in the apartment, and so he remains quite delusional. MENTAL STATUS EXAMINATION: This patient is alert and oriented times three. Eye contact fair. Psychomotor activity is normal. Patient appears to have some pressured thoughts. He is very circumstantial and tangential. He says his mood is "not good." Affect is flat. He appears to have paranoid thoughts. He is denying suicidal or homicidal ideation. Concentration is fair. Memory is intact. Insight and judgment are poor. DIAGNOSIS: Schizophrenia. TREATMENT PLAN: At this point, the patient remains delusional. He will continue on the same medications that apparently he was taking at home, which includes Rexulti 1 mg. I did check the results of a CT scan that he had for apparently some gustatory hallucinations, and the result of the CT scan was negative. INCOMPLETE MTDD
--- NOTE | 2020-05-21 10:44 | MHIPNPDOC ---
[facility] Progress Note Progress Note DATE OF SERVICE: 05/21/20 Subjective HPI: Pako presents today for concerns regarding his schizophrenia. Patient reports to be feeling fine. Patient believes his condition to be a type of passing phase. Air filters are being changed in his apartment to improve the air quality. He denies having suicidal or homicidal thoughts. MEDICATIONS: Currently, the patient is taking Invega. Objective Thought Form: Linear and goal directed. Thought Content: No evidence of suicidal ideation. No evidence of aggressive or homicidal ideation. No evidence of delusions. Somewhat psychotic and unable to reason. No thoughts of self harm. Judgement: Moderately improved. Insight: Moderately improved. Still focused on bad air. Delusional and poor thinking. Assessment F20.9 Schizophrenia, unspecified Plan Continue oral Invega 3 mg Further observation will be needed as his symptoms appear to be slowly resolving. Vital Signs Vital Signs Date Time Temp Pulse Resp B/P (MAP) Pulse Ox O2 Delivery O2 Flow Rate FiO2 05/21/20 08:42 110/60 05/21/20 06:26 97.3 70 18 05/19/20 06:37 Room Air 05/18/20 06:42 98 Current Medications Current Medications Medications (Trade) Dose Ordered Sig/Mauro Route PRN Reason Start Time Stop Time Status Last Admin Dose Admin Acetaminophen (Tylenol Tab) 650 mg Q6HP PRN PO HEADACHE or DISCOMFORT 05/14/20 20:00 Al Hydrox/Mg Hydrox/Simethicone (Mylanta) 30 ml Q4HP PRN PO HEARTBURN/INDIGESTION 05/14/20 20:00 Amphetamine/ Dextroamphetamine (Adderall Xr) 30 mg QAM PO 05/16/20 09:00 05/21/20 08:42 Benztropine Mesylate (Cogentin) 1 mg QHS PO 05/14/20 21:00 05/20/20 20:28 Brexpiprazole (Rexulti) 1 mg DAILY PO 05/15/20 09:00 05/21/20 08:42 Guanfacine HCl (Tenex) 1 mg DAILY PO 05/15/20 09:00 05/21/20 08:42 Home Med (Med Rec Complete!) ASDIRECTED XX 05/14/20 00:45 05/14/20 00:33 DC Ibuprofen (Advil) 400 mg Q6HP PRN PO PAIN 05/18/20 12:30 05/20/20 11:35 Magnesium Hydroxide (Milk Of Magnesia) 30 ml DAILYPRN PRN PO CONSTIPATION 05/14/20 20:00 Nicotine (Nicoderm Cq 21mg) 1 patch DAILY TD 05/15/20 09:00 05/21/20 08:42 Olanzapine (ZyPREXA ZYDIS) 5 mg Q6HP PRN PO ANXIETY/AGITATION 05/14/20 20:00 05/16/20 23:36 Paliperidone (Invega) 3 mg QHS PO 05/18/20 21:00 05/20/20 20:28 Quetiapine Fumarate (SEROquel) 50 mg QHSP PRN PO INSOMNIA 05/14/20 20:00 Allergies Coded Allergies: nefazodone (Verified Allergy, Unknown, rash, 05/13/20) TIM JARA DO May 21, 2020 10:44
[2020-05-21 19:14] VITALS: BP 133/83
[2020-05-21] MEDS: BENZTROPINE 1 MG TAB PO SCH (20:17)
[2020-05-21] MEDS: PALIPERIDONE 3 MG ER TAB (INVEGA) PO SCH (20:17)
[2020-05-22 06:58] VITALS: BP 122/74
[2020-05-22] MEDS: AMPHETAMINE/DEXTROAMPHETAMINE 5 MG *ER* CAPSULE (ADDERALL XR) PO SCH (09:08)
[2020-05-22] MEDS: BREXPIPRAZOLE 0.5MG TABLET (REXULTI) PO SCH (09:08)
[2020-05-22] MEDS: NICOTINE 21MG/24HR 1 EA TRANSDERMAL TD SCH (09:08)
[2020-05-22] MEDS: guanFACINE 1 MG TAB PO SCH (09:10)
--- NOTE | 2020-05-22 10:56 | MHIPNPDOC ---
[facility] Progress Note Progress Note DATE OF SERVICE: 05/22/20 Subjective HPI: Pako presents today for evaluation. Patient stated hes feeling as he usually does and is just fine. The patient had concerns about fumes in his house, and he got a carbon monoxide detector and air purifier. If it continues Justyn plans on moving, and they allow smoking. Patient stated hes been taking it easy. Justyn stated his suicidal thoughts have been good and denied any voices. In the ho spital the patient mentioned smelling mold. MEDICATIONS: Current medications include Invega and has been on it for years. Patient stated it seems good and notices no difference. Justyn stated the other medications have been well for him. SOCIAL HISTORY - SMOKING: Justyn stated he chain-smokes. Objective Appearance: Well groomed. Fair hygiene. Appears to be stated age. Well nourished. Behavior: Engaged. Poor eye contact. Pleasant. Affect: Appropriate to context. Full range. blunted affect disorder constricted. Thought Content: No evidence of aggressive or homicidal ideation. No thoughts of self harm. No evidence of delusions. No evidence of suicidal ideation. Perception: Altered. No perceptual abnormalities noted. Judgement: Intact as evidenced by decision making in the recent past. Associations are looose. Appears to look around the room. Insight: Good insight into symptoms and treatment options. Poor insight. Assessment F20.9 Schizophrenia, unspecified Plan Diagnosis is Schizophrenia. Will attempt to get splint better placed. Continue on Invega. Vital Signs Vital Signs Date Time Temp Pulse Resp B/P (MAP) Pulse Ox O2 Delivery O2 Flow Rate FiO2 05/22/20 09:10 117/74 05/22/20 06:58 99.7 16 16 99 Room Air Current Medications Current Medications Medications (Trade) Dose Ordered Sig/Mauro Route PRN Reason Start Time Stop Time Status Last Admin Dose Admin Acetaminophen (Tylenol Tab) 650 mg Q6HP PRN PO HEADACHE or DISCOMFORT 05/14/20 20:00 05/21/20 19:08 Al Hydrox/Mg Hydrox/Simethicone (Mylanta) 30 ml Q4HP PRN PO HEARTBURN/INDIGESTION 05/14/20 20:00 Amphetamine/ Dextroamphetamine (Adderall Xr) 30 mg QAM PO 05/16/20 09:00 05/22/20 09:08 Benztropine Mesylate (Cogentin) 1 mg QHS PO 05/14/20 21:00 05/21/20 20:17 Brexpiprazole (Rexulti) 1 mg DAILY PO 05/15/20 09:00 05/22/20 09:08 Guanfacine HCl (Tenex) 1 mg DAILY PO 05/15/20 09:00 05/22/20 09:10 Home Med (Med Rec Complete!) ASDIRECTED XX 05/14/20 00:45 05/14/20 00:33 DC Ibuprofen (Advil) 400 mg Q6HP PRN PO PAIN 05/18/20 12:30 05/20/20 11:35 Magnesium Hydroxide (Milk Of Magnesia) 30 ml DAILYPRN PRN PO CONSTIPATION 05/14/20 20:00 Miscellaneous (Unresolved Clarification Entry) SEE LABEL COMMENTS DAILY XX 05/22/20 09:00 Nicotine (Nicoderm Cq 21mg) 1 patch DAILY TD 05/15/20 09:00 05/22/20 09:08 Olanzapine (ZyPREXA ZYDIS) 5 mg Q6HP PRN PO ANXIETY/AGITATION 05/14/20 20:00 05/16/20 23:36 Paliperidone (Invega) 3 mg QHS PO 05/18/20 21:00 05/21/20 20:17 Quetiapine Fumarate (SEROquel) 50 mg QHSP PRN PO INSOMNIA 05/14/20 20:00 Allergies Coded Allergies: nefazodone (Verified Allergy, Unknown, rash, 05/13/20) TIM JARA DO May 22, 2020 10:56
[2020-05-22 16:19] VITALS: BP 117/73
[2020-05-22] MEDS: PALIPERIDONE 3 MG ER TAB (INVEGA) PO SCH (20:05)
[2020-05-22] MEDS: BENZTROPINE 1 MG TAB PO SCH (20:05)
[2020-05-23 06:16] VITALS: BP 122/63
[2020-05-23] MEDS: NICOTINE 21MG/24HR 1 EA TRANSDERMAL TD SCH (08:58)
[2020-05-23] MEDS: AMPHETAMINE/DEXTROAMPHETAMINE 5 MG *ER* CAPSULE (ADDERALL XR) PO SCH (08:59)
[2020-05-23] MEDS: BREXPIPRAZOLE 0.5MG TABLET (REXULTI) PO SCH (08:59)
[2020-05-23] MEDS: guanFACINE 1 MG TAB PO SCH (09:00)
[2020-05-23 16:14] VITALS: BP 118/71
[2020-05-23] MEDS: PALIPERIDONE 3 MG ER TAB (INVEGA) PO SCH (20:32)
[2020-05-23] MEDS: QUEtiapine FUMARATE 50 MG TAB PO PRN (20:32)
[2020-05-23] MEDS: BENZTROPINE 1 MG TAB PO SCH (20:32)
[2020-05-24 06:25] VITALS: BP 120/76
[2020-05-24] MEDS: NICOTINE 21MG/24HR 1 EA TRANSDERMAL TD SCH (09:14)
[2020-05-24] MEDS: BREXPIPRAZOLE 0.5MG TABLET (REXULTI) PO SCH (09:15)
[2020-05-24] MEDS: guanFACINE 1 MG TAB PO SCH (09:15)
[2020-05-24] MEDS: AMPHETAMINE/DEXTROAMPHETAMINE 5 MG *ER* CAPSULE (ADDERALL XR) PO SCH (09:16)
--- NOTE | 2020-05-24 12:08 | CR ---
DATE OF CONSULTATION: 05/19/2020 INDICATION: Left ring finger fracture. HISTORY OF PRESENT ILLNESS: Justyn is a 40-year-old gentleman, he is an inpatient at the psychiatric unit at [facility]. At some point, he injured his left ring finger. He says he smashed it. He does say that icing it has helped. I believe he carries the diagnosis of schizophrenia. I did talk to him and examine his hand in the presence of one of the mental health nurses in the inpatient psychiatric unit. He reports his pain overall is doing well. For the patient's past medical history, past surgical history, medications, allergies, social history and review of systems; please see the admitting H and P from the psychiatric team. PHYSICAL EXAMINATION: GENERAL: Reveals a gentleman in no distress. He answers all questions appropriately. No delusions. He was pleasant to talk to. CARDIOVASCULAR: The left hand is warm and well perfused, 2+ radial pulse. PULMONARY: Non-labored breathing. ABDOMEN: Non-distended. SKIN: Intact without open lesions. MUSCULOSKELETAL: There is mild to moderate swelling of the distal phalanx at the left ring finger. There is no deformity. He has mild tenderness to palpation at the distal phalanx fracture site. He has brisk capillary refill. IMAGING STUDIES: X-rays of the left ring finger reveal a comminuted fracture of the distal phalanx at the mid point. There is very minimal angulation on the lateral view, overall bony alignment is excellent. ASSESSMENT AND PLAN: Justyn has a left ring finger distal phalanx fracture with minimal displacement. I provided a well padded aluminum splint, which went from the tip of the finger just short of the MCP joint and that was taped in place. He said it was comfortable. I showed the splint to the psychiatric team. There are no sharp edges and I got permission to apply that to the patient. The psychiatric team is fully aware and stated that he was not at an increased risk to hurt himself or anyone else with that splint. RECOMMENDATIONS: My recommendations are that he use that splint for the next three weeks at all times except for showering. After that, he can remove it and use his hand as tolerated. I would recommend a repeat x-ray in four weeks. He could be seen at [facility] to ensure adequate healing, however, I anticipate this will heal up fairly uneventfully and should he have no further pain, he can chose to follow-up as needed. The psychiatric team was made aware of these recommendations. JOCELYN
[2020-05-24 16:14] VITALS: BP 114/76
[2020-05-24] MEDS: QUEtiapine FUMARATE 50 MG TAB PO PRN (20:08)
[2020-05-24] MEDS: PALIPERIDONE 3 MG ER TAB (INVEGA) PO SCH (20:08)
[2020-05-24] MEDS: BENZTROPINE 1 MG TAB PO SCH (20:08)
[2020-05-25 06:30] VITALS: BP 112/61
[2020-05-25] MEDS: AMPHETAMINE/DEXTROAMPHETAMINE 5 MG *ER* CAPSULE (ADDERALL XR) PO SCH (09:29)
[2020-05-25] MEDS: BREXPIPRAZOLE 0.5MG TABLET (REXULTI) PO SCH (09:29)
[2020-05-25] MEDS: NICOTINE 21MG/24HR 1 EA TRANSDERMAL TD SCH (09:29)
[2020-05-25] MEDS: guanFACINE 1 MG TAB PO SCH (09:29)
--- NOTE | 2020-05-25 11:19 | MHIPNPDOC ---
[facility] Progress Note Progress Note DATE OF SERVICE: 05/25/20 Subjective HPI: Justyn presents today for a follow up on his Invega. He states that he is sleeping better, and he is taking Seroquel that was prescribed from another provider. He reports that he doesnt like the Seroquel. He is sleeping too well. His fears and concerns about smells, fumes, and being poisoned are better. He states that he feels good and that he can return and be happy as usual. He notes that it is very rare for him to have suicidal thoughts. He states that he does talk to his sister regularly. He denies auditory or visual hallucinations. He denies suicidal or homicidal ideations. MEDICATIONS: He notes that he feels more stable and good on the Invega. Objective Appearance: Well nourished. Well groomed. Fair. Appears to be stated age. Behavior: Engaged. Better eye contact. More reactive. Pleasant. Affect: Full range. Appropriate to context. Cognition: Alert, Attentive, and Oriented to person, place, time. Grossly intact. Associations improved. Thought Form: Generally linear. Thought Content: No evidence of aggressive or homicidal ideation. No evidence of delusions. No thoughts of self harm. No evidence of suicidal ideation. Perception: No perceptual abnormalities noted. Judgement: Intact as evidenced by decision making in the recent past. Mildly improved. Insight: Good insight into symptoms and treatment options. Mildy improved. Assessment F25.9 Schizoaffective disorder, unspecified Plan Continue Adderall Increase Invega to 6 mg oral. The Invega injection will likely need oral bridging during the last week of his dosing. He appears to be making slow but improved progress. Continue Brexpiprazole 1 mg daily Potential discharge early this week if favorable collateral from sister who he regularly talks to Vital Signs Vital Signs Date Time Temp Pulse Resp B/P (MAP) Pulse Ox O2 Delivery O2 Flow Rate FiO2 05/25/20 09:29 112/61 05/25/20 06:30 97.5 56 15 98 Room Air Current Medications Current Medications Medications (Trade) Dose Ordered Sig/Mauro Route PRN Reason Start Time Stop Time Status Last Admin Dose Admin Acetaminophen (Tylenol Tab) 650 mg Q6HP PRN PO HEADACHE or DISCOMFORT 05/14/20 20:00 05/21/20 19:08 Al Hydrox/Mg Hydrox/Simethicone (Mylanta) 30 ml Q4HP PRN PO HEARTBURN/INDIGESTION 05/14/20 20:00 Amphetamine/ Dextroamphetamine (Adderall Xr) 30 mg QAM PO 05/16/20 09:00 05/25/20 09:29 Benztropine Mesylate (Cogentin) 1 mg QHS PO 05/14/20 21:00 05/24/20 20:08 Brexpiprazole (Rexulti) 1 mg DAILY PO 05/15/20 09:00 05/25/20 09:29 Guanfacine HCl (Tenex) 1 mg DAILY PO 05/15/20 09:00 05/25/20 09:29 Home Med (Med Rec Complete!) ASDIRECTED XX 05/14/20 00:45 05/14/20 00:33 DC Ibuprofen (Advil) 400 mg Q6HP PRN PO PAIN 05/18/20 12:30 05/20/20 11:35 Magnesium Hydroxide (Milk Of Magnesia) 30 ml DAILYPRN PRN PO CONSTIPATION 05/14/20 20:00 Miscellaneous (Unresolved Clarification Entry) SEE LABEL COMMENTS DAILY XX 05/22/20 09:00 05/22/20 11:10 DC Nicotine (Nicoderm Cq 21mg) 1 patch DAILY TD 05/15/20 09:00 05/25/20 09:29 Olanzapine (ZyPREXA ZYDIS) 5 mg Q6HP PRN PO ANXIETY/AGITATION 05/14/20 20:00 05/16/20 23:36 Paliperidone (Invega) 3 mg QHS PO 05/18/20 21:00 05/24/20 20:08 Quetiapine Fumarate (SEROquel) 50 mg QHSP PRN PO INSOMNIA 05/14/20 20:00 05/24/20 20:08 Allergies Coded Allergies: nefazodone (Verified Allergy, Unknown, rash, 05/13/20) TIM JARA DO May 25, 2020 11:19
[2020-05-25 17:45] VITALS: BP 133/71
[2020-05-25] MEDS: PALIPERIDONE 3 MG ER TAB (INVEGA) PO SCH (21:52)
[2020-05-25] MEDS: BENZTROPINE 1 MG TAB PO SCH (21:52)
[2020-05-26 06:12] VITALS: BP 123/81
[2020-05-26] MEDS: BREXPIPRAZOLE 0.5MG TABLET (REXULTI) PO SCH (09:32)
[2020-05-26] MEDS: AMPHETAMINE/DEXTROAMPHETAMINE 5 MG *ER* CAPSULE (ADDERALL XR) PO SCH (09:32)
[2020-05-26] MEDS: NICOTINE 21MG/24HR 1 EA TRANSDERMAL TD SCH (09:32)
[2020-05-26] MEDS: guanFACINE 1 MG TAB PO SCH (09:32)
--- NOTE | 2020-05-26 10:43 | MHIPNPDOC ---
[facility] Progress Note Progress Note DATE OF SERVICE: 05/26/20 Subjective HPI: Pako presents today for evaluation. Patient denies having paranoid and scary thoughts of being poisoned, suicidal and homicidal ideation, and hallucinations. MEDICATIONS: Patient reports that the increased dosage of Invega is good. SOCIAL HISTORY - LIVING SITUATION: Patient is still getting used to sleeping with nicotine patches and is actively trying to quit smoking. Objective Appearance: Appears to be stated age. Well nourished. Hygiene - Fair. Affect: Full range. Reactive. Appropriate to context. Thought Form: Linear and goal directed. Thought Content: No evidence of aggressive or homicidal ideation. No evidence of suicidal ideation. No evidence of delusions. No thoughts of self harm. Assessment F20.89 Other schizophrenia Plan Continue Invega 6 mg, Aripiprazole, and Adderall Hold the term baseline from family member then discharge appropriately. Vital Signs Vital Signs Date Time Temp Pulse Resp B/P (MAP) Pulse Ox O2 Delivery O2 Flow Rate FiO2 05/26/20 09:32 123/81 05/26/20 09:01 Room Air 05/26/20 06:12 98.1 64 14 99 Current Medications Current Medications Medications (Trade) Dose Ordered Sig/Mauro Route PRN Reason Start Time Stop Time Status Last Admin Dose Admin Acetaminophen (Tylenol Tab) 650 mg Q6HP PRN PO HEADACHE or DISCOMFORT 05/14/20 20:00 05/21/20 19:08 Al Hydrox/Mg Hydrox/Simethicone (Mylanta) 30 ml Q4HP PRN PO HEARTBURN/INDIGESTION 05/14/20 20:00 Amphetamine/ Dextroamphetamine (Adderall Xr) 30 mg QAM PO 05/16/20 09:00 05/26/20 09:32 Benztropine Mesylate (Cogentin) 1 mg QHS PO 05/14/20 21:00 05/25/20 21:52 Brexpiprazole (Rexulti) 1 mg DAILY PO 05/15/20 09:00 05/26/20 09:32 Guanfacine HCl (Tenex) 1 mg DAILY PO 05/15/20 09:00 05/26/20 09:32 Home Med (Med Rec Complete!) ASDIRECTED XX 05/14/20 00:45 05/14/20 00:33 DC Ibuprofen (Advil) 400 mg Q6HP PRN PO PAIN 05/18/20 12:30 05/20/20 11:35 Magnesium Hydroxide (Milk Of Magnesia) 30 ml DAILYPRN PRN PO CONSTIPATION 05/14/20 20:00 Miscellaneous (Unresolved Clarification Entry) SEE LABEL COMMENTS DAILY XX 05/22/20 09:00 05/22/20 11:10 DC Nicotine (Nicoderm Cq 21mg) 1 patch DAILY TD 05/15/20 09:00 05/26/20 09:32 Olanzapine (ZyPREXA ZYDIS) 5 mg Q6HP PRN PO ANXIETY/AGITATION 05/14/20 20:00 05/16/20 23:36 Paliperidone (Invega) 3 mg QHS PO 05/18/20 21:00 05/25/20 13:46 DC 05/24/20 20:08 Paliperidone (Invega) 6 mg QHS PO 05/25/20 21:00 05/25/20 21:52 Quetiapine Fumarate (SEROquel) 50 mg QHSP PRN PO INSOMNIA 05/14/20 20:00 05/25/20 13:46 DC 05/24/20 20:08 Allergies Coded Allergies: nefazodone (Verified Allergy, Unknown, rash, 05/13/20) TIM JARA DO May 26, 2020 10:43
[2020-05-26 18:05] VITALS: BP 138/71
[2020-05-26] MEDS: BENZTROPINE 1 MG TAB PO SCH (20:04)
[2020-05-26] MEDS: PALIPERIDONE 3 MG ER TAB (INVEGA) PO SCH (20:04)
[2020-05-27 06:57] VITALS: BP 116/60
--- NOTE | 2020-05-27 09:07 | MHIPNPDOC ---
[facility] Progress Note Progress Note DATE OF SERVICE: 05/27/20 Subjective HPI: Justyn presents today for concerns regarding a follow up. He notes that he is doing well enough, and he is remembering to stay hydrated. He states that he cant do it. He notes that he doesnt want a court hearing. He states that there isnt anything wrong with him. In regard to the thoughts about poison, he says that Sheng told him about it, and that he did not come up with those thoughts. He reports that Sheng is a man on the [place] who is tall and has alanis hair, and Sheng told him that a creepy person watches over him at night. He reports that he isnt worried about those thoughts, and only his sister is concerned. He states that 3 weeks is enough, and it is not helping. He reports that he did have fumes coming from his apartment. Patient requested to go but confusingly does not want to initiate any hearing. Objective Appearance: Well nourished. Hygiene fair. Appears to be stated age. Well groom ed. Mood: Irritable. Agitated. Thought Form: Tangential at times but quite guarded. Judgement: Poor. Insight: Poor. Assessment F20.9 Schizophrenia, unspecified Plan Increasing Invega to 9 mg. Symptoms don't appear to be making progress. He could need long-term treatment, however patient is ambivalent about asking for a court hearing. Discussed on his right to ask for one. However, he declines and becomes quite agitated and the interview is promptly terminated. Vital Signs Vital Signs Date Time Temp Pulse Resp B/P (MAP) Pulse Ox O2 Delivery O2 Flow Rate FiO2 05/27/20 06:57 98.4 61 14 116/60 (78) 98 Room Air Current Medications Current Medications Medications (Trade) Dose Ordered Sig/Mauro Route PRN Reason Start Time Stop Time Status Last Admin Dose Admin Acetaminophen (Tylenol Tab) 650 mg Q6HP PRN PO HEADACHE or DISCOMFORT 05/14/20 20:00 05/21/20 19:08 Al Hydrox/Mg Hydrox/Simethicone (Mylanta) 30 ml Q4HP PRN PO HEARTBURN/INDIGESTION 05/14/20 20:00 Amphetamine/ Dextroamphetamine (Adderall Xr) 30 mg QAM PO 05/16/20 09:00 05/26/20 09:32 Benztropine Mesylate (Cogentin) 1 mg QHS PO 05/14/20 21:00 05/26/20 20:04 Brexpiprazole (Rexulti) 1 mg DAILY PO 05/15/20 09:00 05/26/20 09:32 Guanfacine HCl (Tenex) 1 mg DAILY PO 05/15/20 09:00 05/26/20 09:32 Home Med (Med Rec Complete!) ASDIRECTED XX 05/14/20 00:45 05/14/20 00:33 DC Ibuprofen (Advil) 400 mg Q6HP PRN PO PAIN 05/18/20 12:30 05/20/20 11:35 Magnesium Hydroxide (Milk Of Magnesia) 30 ml DAILYPRN PRN PO CONSTIPATION 05/14/20 20:00 Miscellaneous (Unresolved Clarification Entry) SEE LABEL COMMENTS DAILY XX 05/22/20 09:00 05/22/20 11:10 DC Nicotine (Nicoderm Cq 21mg) 1 patch DAILY TD 05/15/20 09:00 05/26/20 09:32 Olanzapine (ZyPREXA ZYDIS) 5 mg Q6HP PRN PO ANXIETY/AGITATION 05/14/20 20:00 05/16/20 23:36 Paliperidone (Invega) 3 mg QHS PO 05/18/20 21:00 05/25/20 13:46 DC 05/24/20 20:08 Paliperidone (Invega) 6 mg QHS PO 05/25/20 21:00 05/26/20 20:04 Quetiapine Fumarate (SEROquel) 50 mg QHSP PRN PO INSOMNIA 05/14/20 20:00 05/25/20 13:46 DC 05/24/20 20:08 Allergies Coded Allergies: nefazodone (Verified Allergy, Unknown, rash, 05/13/20) TIM JARA DO May 27, 2020 09:07
[2020-05-27] MEDS: NICOTINE 21MG/24HR 1 EA TRANSDERMAL TD SCH (09:19)
[2020-05-27] MEDS: AMPHETAMINE/DEXTROAMPHETAMINE 5 MG *ER* CAPSULE (ADDERALL XR) PO SCH (09:19)
[2020-05-27] MEDS: BREXPIPRAZOLE 0.5MG TABLET (REXULTI) PO SCH (09:20)
[2020-05-27] MEDS: guanFACINE 1 MG TAB PO SCH (09:20)
[2020-05-27 17:25] VITALS: BP 113/62
[2020-05-27] MEDS: BENZTROPINE 1 MG TAB PO SCH (20:02)
[2020-05-27] MEDS: PALIPERIDONE 3 MG ER TAB (INVEGA) PO SCH (20:02)
[2020-05-28 06:34] VITALS: BP 96/58
[2020-05-28] MEDS: NICOTINE 21MG/24HR 1 EA TRANSDERMAL TD SCH (09:00)
[2020-05-28] MEDS: AMPHETAMINE/DEXTROAMPHETAMINE 5 MG *ER* CAPSULE (ADDERALL XR) PO SCH (09:33)
[2020-05-28] MEDS: BREXPIPRAZOLE 0.5MG TABLET (REXULTI) PO SCH (09:34)
[2020-05-28] MEDS: guanFACINE 1 MG TAB PO SCH (09:35)
--- NOTE | 2020-05-28 10:05 | MHIPNPDOC ---
[facility] Progress Note Progress Note DATE OF SERVICE: 05/28/20 Subjective HPI: Justyn presents today for a follow-up regarding his medication. He states he has been experiencing a nervous feeling. Patient denies suicidal or homicidal thoughts. He states his dream content has improved. He wishes to have his plan of treatment discussed with his mother. MEDICATIONS: Patient notes he had taken oral Invega in the past, before the Invega injections. He states he was switched from oral Invega to Invega injections because his parents wanted to ensure he received his dosage of medication. Objective Appearance: Well groomed. Well nourished. Hygiene fair. Appears to be stated age. Behavior: Cooperative with good eye contact. Good eye contact. Pleasant. Engaged. Affect: Somewhat flat. Little reactivity. Cognition: Appears more intact. Memory: Association still mildly loosened. Thought Form: Linear and goal directed. Circumstantial at times. Thought Content: No evidence of aggressive or homicidal ideation. No evidence of suicidal ideation. No thoughts of self harm. No evidence of delusions. Judgement: Poor to fair. Insight: Poor to fair. Assessment F20.9 Schizophrenia, unspecified Plan Continue Invega 9 milligrams daily. We'll see about talking to mother about patient's current mental status. Vital Signs Vital Signs Date Time Temp Pulse Resp B/P (MAP) Pulse Ox O2 Delivery O2 Flow Rate FiO2 05/28/20 09:35 122/72 05/28/20 06:34 97.0 106 18 05/27/20 09:18 Room Air 05/27/20 06:57 98 Current Medications Current Medications Medications (Trade) Dose Ordered Sig/Mauro Route PRN Reason Start Time Stop Time Status Last Admin Dose Admin Acetaminophen (Tylenol Tab) 650 mg Q6HP PRN PO HEADACHE or DISCOMFORT 05/14/20 20:00 05/21/20 19:08 Al Hydrox/Mg Hydrox/Simethicone (Mylanta) 30 ml Q4HP PRN PO HEARTBURN/INDIGESTION 05/14/20 20:00 Amphetamine/ Dextroamphetamine (Adderall Xr) 30 mg QAM PO 05/16/20 09:00 05/28/20 09:33 Benztropine Mesylate (Cogentin) 1 mg QHS PO 05/14/20 21:00 05/27/20 20:02 Brexpiprazole (Rexulti) 1 mg DAILY PO 05/15/20 09:00 05/28/20 09:34 Guanfacine HCl (Tenex) 1 mg DAILY PO 05/15/20 09:00 05/28/20 09:35 Home Med (Med Rec Complete!) ASDIRECTED XX 05/14/20 00:45 05/14/20 00:33 DC Ibuprofen (Advil) 400 mg Q6HP PRN PO PAIN 05/18/20 12:30 05/20/20 11:35 Magnesium Hydroxide (Milk Of Magnesia) 30 ml DAILYPRN PRN PO CONSTIPATION 05/14/20 20:00 Miscellaneous (Unresolved Clarification Entry) SEE LABEL COMMENTS DAILY XX 05/22/20 09:00 05/22/20 11:10 DC Nicotine (Nicoderm Cq 21mg) 1 patch DAILY TD 05/15/20 09:00 05/27/20 09:19 Olanzapine (ZyPREXA ZYDIS) 5 mg Q6HP PRN PO ANXIETY/AGITATION 05/14/20 20:00 05/16/20 23:36 Paliperidone (Invega) 3 mg QHS PO 05/18/20 21:00 05/25/20 13:46 DC 05/24/20 20:08 Paliperidone (Invega) 6 mg QHS PO 05/25/20 21:00 05/27/20 11:49 DC 05/26/20 20:04 Paliperidone (Invega) 9 mg QHS PO 05/27/20 21:00 05/27/20 20:02 Quetiapine Fumarate (SEROquel) 50 mg QHSP PRN PO INSOMNIA 05/14/20 20:00 05/25/20 13:46 DC 05/24/20 20:08 Allergies Coded Allergies: nefazodone (Verified Allergy, Unknown, rash, 05/13/20) TIM JARA DO May 28, 2020 10:05
[2020-05-28] MEDS: BENZTROPINE 1 MG TAB PO SCH (20:42)
[2020-05-28] MEDS: PALIPERIDONE 3 MG ER TAB (INVEGA) PO SCH (20:42)
[2020-05-29 06:27] VITALS: BP 114/61
[2020-05-29] MEDS: NICOTINE 21MG/24HR 1 EA TRANSDERMAL TD SCH (09:00)
[2020-05-29] MEDS: BREXPIPRAZOLE 0.5MG TABLET (REXULTI) PO SCH (09:25)
[2020-05-29] MEDS: guanFACINE 1 MG TAB PO SCH (09:26)
[2020-05-29] MEDS: AMPHETAMINE/DEXTROAMPHETAMINE 5 MG *ER* CAPSULE (ADDERALL XR) PO SCH (09:26)
[2020-05-29 18:05] VITALS: BP 131/80
[2020-05-29] MEDS: PALIPERIDONE 3 MG ER TAB (INVEGA) PO SCH (20:27)
[2020-05-29] MEDS: BENZTROPINE 1 MG TAB PO SCH (20:27)
[2020-05-30 06:35] VITALS: BP 113/71
[2020-05-30] MEDS: NICOTINE 21MG/24HR 1 EA TRANSDERMAL TD SCH (08:36)
[2020-05-30] MEDS: BREXPIPRAZOLE 0.5MG TABLET (REXULTI) PO SCH (08:39)
[2020-05-30] MEDS: AMPHETAMINE/DEXTROAMPHETAMINE 5 MG *ER* CAPSULE (ADDERALL XR) PO SCH (08:39)
[2020-05-30] MEDS: guanFACINE 1 MG TAB PO SCH (08:42)
[2020-05-30] MEDS ORDERED: NYSTATIN 100,000 UNITS/GM TOPICAL PWD 15 GM TOP PRN (17:30)
[2020-05-30 18:03] VITALS: BP 131/69
[2020-05-30] MEDS: BENZTROPINE 1 MG TAB PO SCH (21:36)
[2020-05-30] MEDS: PALIPERIDONE 3 MG ER TAB (INVEGA) PO SCH (21:36)
[2020-05-31 06:55] VITALS: BP 118/72
[2020-05-31] MEDS: NICOTINE 21MG/24HR 1 EA TRANSDERMAL TD SCH (09:00)
[2020-05-31] MEDS: AMPHETAMINE/DEXTROAMPHETAMINE 5 MG *ER* CAPSULE (ADDERALL XR) PO SCH (09:30)
[2020-05-31] MEDS: BREXPIPRAZOLE 0.5MG TABLET (REXULTI) PO SCH (09:30)
[2020-05-31] MEDS: guanFACINE 1 MG TAB PO SCH (09:30)
[2020-05-31] MEDS: MULTIVITAMINS/MINERALS THERAP 1 TAB PO SCH (12:42)
[2020-05-31 18:03] VITALS: BP 124/70
[2020-05-31] MEDS: PALIPERIDONE 3 MG ER TAB (INVEGA) PO SCH (20:31)
[2020-05-31] MEDS: BENZTROPINE 1 MG TAB PO SCH (20:31)
[2020-06-01 06:34] VITALS: BP 119/71
[2020-06-01] MEDS: NICOTINE 21MG/24HR 1 EA TRANSDERMAL TD SCH (08:17)
[2020-06-01] MEDS: AMPHETAMINE/DEXTROAMPHETAMINE 5 MG *ER* CAPSULE (ADDERALL XR) PO SCH (08:19)
[2020-06-01] MEDS: MULTIVITAMINS/MINERALS THERAP 1 TAB PO SCH (08:20)
[2020-06-01] MEDS: guanFACINE 1 MG TAB PO SCH (08:20)
[2020-06-01] MEDS: BREXPIPRAZOLE 0.5MG TABLET (REXULTI) PO SCH (08:20)
--- NOTE | 2020-06-01 09:44 | MHIPNPDOC ---
[facility] Progress Note Progress Note DATE OF SERVICE: 06/01/20 Subjective HPI: cee presents today for a check up. He reports he is doing better and has made some progress. He otherwise has no complaints. Collateral from mother and sister report that the patient is generally doing well and has no delusional thoughts reported to them. He appears to be improving. MEDICATIONS: Patient reports that the Invega is helpful for him. Objective Appearance: Hygiene, fair. Affect: Full range. Appropriate to context. More reactive. Mood: Euthymic. Appropriately reactive. Generally good. Cognition: Alert, Attentive, and Oriented to person, place, time. Thought Form: Linear and goal directed. Judgement: Improved. Insight: Improved. Assessment F20.9 Schizophrenia, unspecified Plan Continue Invega 9 mg nightly. Will send home the combination of oral or injectable as it appears that the plasma concentrations are not enough to maintain symptom control at this time. Will leave to outpatient provider, but mother is trying to get him into Behavioral Health and a full-service clinic which would be more ideal. Vital Signs Vital Signs Date Time Temp Pulse Resp B/P (MAP) Pulse Ox O2 Delivery O2 Flow Rate FiO2 06/01/20 08:20 110/78 06/01/20 06:34 97.6 70 18 100 Room Air Current Medications Current Medications Medications (Trade) Dose Ordered Sig/Mauro Route PRN Reason Start Time Stop Time Status Last Admin Dose Admin Acetaminophen (Tylenol Tab) 650 mg Q6HP PRN PO HEADACHE or DISCOMFORT 05/14/20 20:00 05/21/20 19:08 Al Hydrox/Mg Hydrox/Simethicone (Mylanta) 30 ml Q4HP PRN PO HEARTBURN/INDIGESTION 05/14/20 20:00 Amphetamine/ Dextroamphetamine (Adderall Xr) 30 mg QAM PO 05/16/20 09:00 06/01/20 08:19 Benztropine Mesylate (Cogentin) 1 mg QHS PO 05/14/20 21:00 05/31/20 20:31 Brexpiprazole (Rexulti) 1 mg DAILY PO 05/15/20 09:00 06/01/20 08:20 Guanfacine HCl (Tenex) 1 mg DAILY PO 05/15/20 09:00 06/01/20 08:20 Home Med (Med Rec Complete!) ASDIRECTED XX 05/14/20 00:45 05/14/20 00:33 DC Ibuprofen (Advil) 400 mg Q6HP PRN PO PAIN 05/18/20 12:30 05/20/20 11:35 Magnesium Hydroxide (Milk Of Magnesia) 30 ml DAILYPRN PRN PO CONSTIPATION 05/14/20 20:00 Miscellaneous (Unresolved Clarification Entry) SEE LABEL COMMENTS DAILY XX 05/22/20 09:00 05/22/20 11:10 DC Multivitamins (Theragram-M) 1 tab QAM PO 05/31/20 09:00 06/01/20 08:20 Nicotine (Nicoderm Cq 21mg) 1 patch DAILY TD 05/15/20 09:00 05/27/20 09:19 Nystatin (Mycostatin Powder, Nystop) BIDP PRN TOP RASH 05/30/20 17:30 05/31/20 09:27 Olanzapine (ZyPREXA ZYDIS) 5 mg Q6HP PRN PO ANXIETY/AGITATION 05/14/20 20:00 05/16/20 23:36 Paliperidone (Invega) 3 mg QHS PO 05/18/20 21:00 05/25/20 13:46 DC 05/24/20 20:08 Paliperidone (Invega) 6 mg QHS PO 05/25/20 21:00 05/27/20 11:49 DC 05/26/20 20:04 Paliperidone (Invega) 9 mg QHS PO 05/27/20 21:00 05/31/20 20:31 Quetiapine Fumarate (SEROquel) 50 mg QHSP PRN PO INSOMNIA 05/14/20 20:00 05/25/20 13:46 DC 05/24/20 20:08 Allergies Coded Allergies: nefazodone (Verified Allergy, Unknown, rash, 05/13/20) TIM JARA DO Jun 01, 2020 09:44
[2020-06-01 16:05] VITALS: BP 131/70
[2020-06-01] MEDS: BENZTROPINE 1 MG TAB PO SCH (20:41)
[2020-06-01] MEDS: PALIPERIDONE 3 MG ER TAB (INVEGA) PO SCH (20:41)
[2020-06-01] MEDS ORDERED: QUEtiapine FUMARATE 50 MG TAB PO PRN (22:00)
[2020-06-02 06:29] VITALS: BP 117/61
[2020-06-02] MEDS: NICOTINE 21MG/24HR 1 EA TRANSDERMAL TD SCH (09:00)
[2020-06-02] MEDS: AMPHETAMINE/DEXTROAMPHETAMINE 5 MG *ER* CAPSULE (ADDERALL XR) PO SCH (09:14)
[2020-06-02] MEDS: BREXPIPRAZOLE 0.5MG TABLET (REXULTI) PO SCH (09:14)
[2020-06-02] MEDS: MULTIVITAMINS/MINERALS THERAP 1 TAB PO SCH (09:14)
[2020-06-02 09:15] VITALS: BP 116/65
[2020-06-02] MEDS: guanFACINE 1 MG TAB PO SCH (09:15)
--- NOTE | 2020-06-02 10:44 | MHDSPDOC ---
[facility] Discharge Summary Discharge Summary DATE OF ADMISSION: May 14, 2020 at 19:52 DATE OF DISCHARGE: Jun 02, 2020 at 13:20 DISCHARGE DIAGNOSES: F20.9 Schizophrenia, unspecified CONSULTANTS INVOLVED:[ None (basic hospitalist screening)] REASON FOR ADMISSION & TREATMENT AND PROGRESS ON THE UNIT : The patient was admitted to the inpatient mental health unit after reporting unusual ideation and paranoia. Collateral information from his mother and his sister reported no further delusional ideation at which time he was then triaged for discharge as he had made good progress. He additionally was triage in to a full-service Clinic to help reduce his problems with relapse. MEDICATIONS: He was started on his Invega 154 milligrams as well as this home Adderall and guanfacine. He was then started on oral medications as his sister had reported that the last week before his injection he had significant problems with further psychotic symptoms. This was increased to 9 milligrams nightly with positive effects on unusual ideation result in he became more amenable with no paranoia. Patient will take larger dose of Invega next month to help reduce the chance of relapse as it appears that the low dose does not provide significant coverage for the month. DISCHARGE ASSESSMENT[improved] Legal status considerations: The patient at the time of discharge did not meet criteria for involuntary admission/extension due to having a improved mental status exam, improved insight into the situation, They are engaged in the discharge process, as well as being friendly and amenable in behavioral control and havent been engaging in any observed concerning behavior or ideation recently. They decline voluntary extension/admission at this time and must be discharged in good eulalia, as Im unable to make a case for holding the patient against their will. They may have historical risk factors of admissions and other interactions with psychiatry however, those are not modifiable from a clinical perspective. The patient will need to be discharged in good eulalia. MENTAL STATUS EXAMINATION ON DISCHARGE: Appearance: Fair hygiene. Appears to be stated age. Affect: Somewhat flat, however, more reactive than previous. Speech: Spontaneous and Fluid. Normal volume. Normal rate. Cognition: Grossly intact. Alert, Attentive, and Oriented to person, place, time. Thought Form: Logical. Linear and goal directed. Judgement: Fair. Insight: Fair. PLAN/FOLLOWUP ARRANGEMENTS: Follow up appointments made (PCP and MH in 5 days of D/C date) and safety plan completed. Safety Planning aspects completed prior to discharge [Medication supplies limited to 7 days with 4 refills to prevent accumulation to OD] [Family contact completed, educated on safe practices, instructed on removal and mitigation of dangerous means] [RN reviewed crisis hotline information and other aspects to empower patient to access care in interim before next appointment.] The amount of time spent in the coordination of care for this patient was approximately 30 minutes. Vital Signs/I&Os Vital Signs Date Time Temp Pulse Resp B/P (MAP) Pulse Ox O2 Delivery O2 Flow Rate FiO2 06/02/20 09:15 116/65 06/02/20 06:29 96.8 50 18 06/01/20 06:34 100 Room Air Medications Scheduled Benztropine Mesylate (Benztropine Mesylate) 1 Mg Tab, 1 MG PO QHS, (Reported) Caffeine (Caffeine) 200 Mg Tablet, 200 MG PO DAILY, (Reported) Dextroamphetamine/Amphetamine (Adderall Xr 30 mg Capsule) 30 Mg Cap.er.24h, 1 CAP PO DAILY, (Reported) Guanfacine HCl (Guanfacine HCl) 1 Mg Tablet, 1 MG PO DAILY, (Reported) TAKES @ 1200 Multivitamins (Thera M Plus Tablet) 1 Each Tablet, 1 TAB PO DAILY, (Reported) Nicotine (Nicotine Patch) 21 Mg Patch.td24, 1 PATCH TD DAILY for tobacco for 30 Days, #30 Paliperidone (Invega) 9 Mg Tab.er.24, 1 TAB PO QAM for thoughts for 7 Days, #7 Paliperidone Palmitate (Invega Sustenna) 234 Mg/1.5 Ml Syringe, 1 SYRINGE IM Q30D for thoughts for 30 Days, #1 next due 06/18 Vitamin B Complex (Vitamin B Complex) 1 Each Tablet, 1 TAB PO DAILY, (Reported) Scheduled PRN Doxylamine Succinate (Unisom Sleep Aid) 25 Mg Tablet, 25 MG PO QHS PRN for INSOMNIA, (Reported) Allergies Coded Allergies: nefazodone (Verified Allergy, Unknown, rash, 05/13/20) TIM JARA DO Jun 02, 2020 10:44
[2020-06-02] MEDS ORDERED: INVE9TAB PO (11:02)
[2020-06-02] MEDS ORDERED: NICO21PAT TD (11:02)
[2020-06-02] MEDS ORDERED: INVE234I IM (11:02)
--- NOTE | 2020-06-02 13:38 | MHIPN ---
DATE: 05/19/2020 VITAL SIGNS: Blood pressure 112/61, pulse 68, temperature 97.8. CHIEF COMPLAINT: Says he does not know how he feels. SUBJECTIVE: I am assigned to his case for today, as Dr. Robledo is away. The patient says he feels okay but also that he does not know how to answer these questions, says it is a long time that he has been here. He says sleep is okay. He feels he may be getting a bit too much sleep. Appetite is okay. Denies any suicidal thoughts or intents. MENTAL STATUS EXAM: He is seen in the presence of staff. He is cooperative, but appears somewhat disinterested. No agitation. No psychomotor retardation. Answers questions briefly logically and coherently. Affect is restricted in range, with little reactivity. Does not appear to be internally preoccupied at present. Cognition is grossly intact. Judgment and insight remain compromised. ASSESSMENT: Schizophrenia. PLAN: Continue current care, observations, further recommendations will be made depending on the clinical picture. JOCELYN
== END 2020-06-02 13:20 | disposition home or self-care (01) | DRG 885 ==
LOC: M ED 22:22 → M ED INP 05-14 19:52 → M PSY 05-14 21:45
PROVIDERS: ADMIT Psychiatry & Neurology Psychiatry; ATTEND Psychiatry & Neurology Addiction Medicine
DX: F20.9 Schizophrenia, unspecified (principal); R45.851 Suicidal ideations; E78.5 Hyperlipidemia, unspecified; Z79.899 Other long term (current) drug therapy; Z88.8 Allergy status to other drugs, medicaments and biological substances; S62.634A Displaced fracture of distal phalanx of right ring finger, initial encounter for closed fracture; W22.8XXA Striking against or struck by other objects, initial encounter; Y92.9 Unspecified place or not applicable